=== PATIENT | female | born 1945 | race African-American/Black ===

== ENCOUNTER → 2019-10-31 | Outpatient (CLI) | payer MEDICARE | END | disposition home or self-care (01) | LOC: CARD 09:21 | PROVIDERS: ATTEND Specialist | DX: I08.0 Rheumatic disorders of both mitral and aortic valves (principal); I10 Essential (primary) hypertension; R06.02 Shortness of breath | CPT/HCPCS: 93306 ==

== ENCOUNTER → 2020-01-14 | Outpatient (CLI) | payer MEDICARE | END | disposition home or self-care (01) | LOC: CARD 12:09 | PROVIDERS: ATTEND Specialist | DX: I44.4 Left anterior fascicular block (principal); I10 Essential (primary) hypertension | CPT/HCPCS: 71045; 93005 ==

== ENCOUNTER → 2020-01-18 | Day surgery (SDC) | payer MEDICARE | END | disposition home or self-care (01) | LOC: RAD 08:02 | PROVIDERS: ATTEND Surgery | DX: N63.10 Unspecified lump in the right breast, unspecified quadrant (principal) | CPT/HCPCS: 19281 ==

== ENCOUNTER → 2020-04-04 | Outpatient (CLI) | payer MEDICARE ==
[~2020-04-04] MED LIST: CLON0.1T PO; TRAM50TA3 PO; VALS160T28 PO
== END | disposition home or self-care (01) ==
LOC: LAB 11:17
PROVIDERS: ATTEND Surgery
DX: Z01.818 Encounter for other preprocedural examination (principal); Z11.59 Encounter for screening for other viral diseases
CPT/HCPCS: U0003-CS

== ENCOUNTER → 2020-04-09 | Day surgery (SDC) | payer MEDICARE ==
[~2020-04-09] VITALS: Ht 167.6 cm; Wt 133.8 kg
[~2020-04-09] MED LIST changes: +BUPIVACAINE HCL 0.5% (5MG/ML) 50ML ONE; +FENTANYL CITRATE/PF 50MCG/ML 2ML VIAL ONE; +KETOROLAC 30MG/ML VIAL ONE; +LACTATED RINGERS 1,000 ML IV SCH; +LIDOCAINE HCL 1% 20ML VIAL (Pyxis) INJ ONE; +METHYLENE BLUE 50 MG/10 ML AMP IV ONE; +METOCLOPRAMIDE HCL 10MG/2ML VIAL ONE; +MIDAZOLAM HCL 2 MG/2 ML VIAL ONE; +NORMAL SALINE 0.9% 10 ML SYR ONE; +ONDANSETRON HCL 4MG/2ML INJ IV PRN; +ONDANSETRON HCL 4MG/2ML INJ ONE; +PROPOFOL 200MG/20ML VIAL IV ONE; +SKIN ADHESIVE 0.7 GM EA TOP ONE; +TRAMADOL 50MG TABLET PO PRN
== END | disposition home or self-care (01) ==
LOC: OR 05:32
PROVIDERS: ATTEND Surgery
DX: N63.10 Unspecified lump in the right breast, unspecified quadrant (principal); I10 Essential (primary) hypertension; E66.9 Obesity, unspecified; Z88.2 Allergy status to sulfonamides; Z88.5 Allergy status to narcotic agent; Z79.899 Other long term (current) drug therapy; Z98.890 Other specified postprocedural states; Z68.42 Body mass index [BMI] 45.0-49.9, adult
CPT/HCPCS: 19125; 93005; J1885; J2250; J2405; J2704; J2765; J3010; J3490; Q9968